=== PATIENT | female | born 1940 | race Caucasian/White ===

== ENCOUNTER 2016-04-29 16:41 | Inpatient (IN) | payer OTHER ==
[~2016-04-29] VITALS: Ht 167.6 cm; Wt 79.8 kg
--- NOTE | ~2016-04-29 | 2DMMODE ---
[facility] [place] [address] 2 D/M-MODE ECHOCARDIOGRAM Name: MANAN IGLESIAS Room #: 217-P [facility] IN M.R.#: [id number] Admission: 04/29/16 Attend Phys: Bladimir Mesa, Discharge: Date of : 36 Date of Service: 05/01/16 [facility] Report #: [id number] THIS REPORT FOR: //name// Transthoracic Echocardiography Ordering physician: Bladimir Mesa Referring physician: Bladimir Mesa Knitted Goods Shaper: Marilu Delgadillo Indications/History: Afib. Hx: HTN BP: 130 / HR: 109bpm Height: 66in Weight: 169.6lb 65 Study data: M-mode, complete 2D, complete spectral Doppler, and color Doppler. Location: Bedside. Routine. Image quality was adequate. 2D measurements Normal Normal LVID ED 39.7mm 36-57 IVS ED 10.8mm 6-11 LVID ES 26.4mm 23-40 LVPW ED 10mm 6-11 LA volume 40ml/m2 16-28 AoRoot diam 31.8mm 21-37 index ED LVOT diameter 19mm 18-23 Findings: Left ventricle: The cavity size was normal. Wall thickness was normal. Systolic function was normal. The estimated ejection fraction was in the range of 55% to 60%. Wall motion was normal. Right ventricle: The cavity size was normal. Systolic function was normal. Right atrium: The atrium was dilated. Possible shunting in region of fossa ovalis; cannot rule out PFO vs secundum ASD Left atrium: The atrium was moderately dilated. Volume index: 40ml/m2 (S). Aortic valve: Structurally normal valve. Doppler: There was no stenosis. No regurgitation. Peak velocity: 119.6cm/s (S). [facility] [address] [place] [address] 2 D/M-MODE ECHOCARDIOGRAM Name: MANAN IGLESIAS Room #: 217-P [facility] IN Giovanna.#: [id number] Admission: 04/29/16 Attend Phys: Bladimir Mesa, Discharge: Date of : 36 Date of Service: 05/01/16 1007 Report #: [id number] Mitral valve: Moderately to severely calcified annulus. Doppler: There was no evidence for stenosis. Mild regurgitation. Peak E-wave velocity: 121.2cm/s. Peak gradient: 5.9mm Hg (D). Tricuspid valve: Structurally normal valve. Doppler: There was no evidence for stenosis. Mild-moderate regurgitation. Regurgitant peak velocity: 234.6cm/s. Peak RV-RA gradient: 22mm Hg (S). Pulmonic valve: Structurally normal valve. Doppler: There was no evidence for stenosis. No regurgitation. Pericardium: There was no pericardial effusion. Aorta: Aortic root: The aortic root was normal in size. Pulmonary artery: Systolic pressure was estimated to be 27mm Hg. Diastolic function: The study was not technically sufficient to allow evaluation of LV diastolic dysfunction due to atrial fibrillation. Systemic veins: Inferior vena cava: The vessel was normal in size; the respirophasic diameter changes were in the normal range (= 50%). Conclusions 1. Left ventricle: Systolic function was normal. The estimated ejection fraction was in the range of 55% to 60%. Wall motion was normal. 2. Right atrium: The atrium was dilated. Possible shunting in region of fossa ovalis; cannot rule out PFO vs secundum ASD 3. Left atrium: The atrium was moderately dilated. 4. Aortic valve: Structurally normal valve. There was no stenosis. No regurgitation. 5. Mitral valve: Moderately to severely calcified annulus. There was no evidence for stenosis. Mild regurgitation. 6. Pulmonary arteries: Systolic pressure was estimated to be 27mm Hg. 7. Pericardium, extracardiac: There was no pericardial effusion. <ELECTRONICALLY SIGNED> By: Lucho Patel MD, [facility] 05/01/16 1056 1007 1056 Lucho Patel MD, [facility] /kelly
--- NOTE | ~2016-04-29 | H ---
[facility] [place] [address] HISTORY AND PHYSICAL Name: KELSIE,FRANCES Antwan Room #: 217-P [facility] IN M.R.#: [id number] Admission: 04/29/16 Attend Phys: Bladimir Mesa MD Discharge: 05/04/16 Date of : 38 Report #: [id number] THIS REPORT FOR: //name// CC: Bladimir Mesa DATE OF SERVICE: 04/30/2016 CHIEF COMPLAINT: Rapid heartbeat. HISTORY OF PRESENT ILLNESS: The patient is a 76-year-old female who presented to the ER with sensation of a rapid heartbeat. She denied any significant chest pain, but she did have some chest tightness and cough. She has had a recent upper respiratory tract infection with wheezing. She was unaware of any fevers or chills. She is not aware of any prior history of irregular heartbeats. She did have a nuclear stress test years ago however. PAST MEDICAL HISTORY: Significant for: 1. Hypertension. 2. DJD. ALLERGIES: No known drug allergies. SOCIAL HISTORY: Nonsmoker and nondrinker, no recreational drugs. REVIEW OF SYSTEMS: CONSTITUTIONAL: No fever or chills. HEENT: No headaches or visual changes. CHEST: She does have a cough with wheezing. CARDIOVASCULAR: She does have the palpations. GASTROINTESTINAL: No nausea, vomiting, diarrhea or constipation. GENITOURINARY: No complaints. EXTREMITIES: No swelling or new complaints. NEUROLOGIC: No new numbness or weakness. PHYSICAL EXAMINATION: VITAL SIGNS: Blood pressure in the ER 151/79, blood pressure now is 130s/80s, pulse was 115, now it is in the 80s and she is afebrile. O2 sat was 95% on room air. GENERAL: She is awake and alert, in no acute distress. HEENT: Her mucous membranes are moist. NECK: Supple, without adenopathy, thyromegaly or bruits. LUNGS: Chest is clear bilaterally, anteriorly some basilar wheezes. CARDIOVASCULAR: Irregular rhythm with a rate in the 80s to 90s. ABDOMEN: Soft, no masses. Bowel sounds are active. EXTREMITIES: Show no edema. Pulses are intact. [address] [address] HISTORY AND PHYSICAL Name: MANAN IGLESIAS Antwan Room #: 217-P [facility] IN [facility].#: [id number] Admission: 04/29/16 Attend Phys: Bladimir Mesa MD Discharge: 05/04/16 Date of : 38 Report #: [id number] DIAGNOSTIC DATA: EKG showed AFib with a rate of 134 in the ER. A second one was done a little bit later, it was 98. Chest x-ray showed cardiac prominence, an interstitial prominence, but no focal infiltrate. LABORATORY DATA: Sodium 137, potassium 4.7, chloride 100, bicarbonate 25, BUN 27, creatinine 1.2, glucose 117, calcium 9.2 and magnesium 2.0. AST 19 and ALT 27. Troponin less than 0.04. INR 1.0. WBCs 8.5, hemoglobin 13.5, hematocrit 40.7 and platelet count 217. Segs 56 and 24 lymphs. ASSESSMENT: Atrial fibrillation with rapid ventricular response. She was given a dose of intravenous diltiazem in the ER and her rate did slow down. She has been on a Cardizem drip. We have decreased her from 10 down to 5. She is doing well. She does report she has had these spells in the past, did not know what they were. PLAN: 1. We will go ahead and switch her to oral Cardizem, add Xarelto for anticoagulation, get an echocardiogram and consult Cardiology. 2. Degenerative joint disease, resume her home pain meds. 3. Follow up on her thyroid function studies in light of the new AFib. <ELECTRONICALLY SIGNED> By: Bladimir Mesa MD 05/05/16 1632 1446 1526 Bladimir Mesa MD /nt
--- NOTE | ~2016-04-29 | HC ---
[facility] [place] [address] CONSULTATION Name: MANAN IGLESIAS Room #: 217-P ADM IN M.R.#: [id number] Admission: 04/29/16 Attend Phys: Bladimir Mesa MD Discharge: Date of : 38 Report #: [id number] THIS REPORT FOR: //name// CC: Bladimir Mesa HISTORY OF PRESENT ILLNESS: This is a very pleasant 76-year-old white female who presented to the emergency room with sensation of heart racing. The patient states she had noticed increasing shortness of breath since . She also noticed that she had been fatigued and tired since that time. She was concerned today because along with the shortness of breath, she developed chest tightness with an associated cough, which is nonproductive. Upon further questioning, she stated that at around Day, she noted that she had an episode of tightness in her back and her chest. She thought that it was associated to age, activity, and movement and did not seek any medical attention. She continued having shortness of breath progressively since that time until symptoms this morning as described above concerned her. Prior to this , she had no chest pain, pressure, tightness, heaviness, fullness, dizziness, near syncope, or vertigo. She did notice an increasing fatigue since that time. Approximately 10 or so years ago, she did have a stress test and an echo, which was negative. PAST MEDICAL HISTORY: Significant for: 1. Hypertension. 2. Constipation, chronic. 3. Anxiety and depression. 4. Degenerative joint disease. 5. Overactive bladder. ALLERGIES: No known drug allergies. PAST SURGICAL HISTORY: Significant for: 1. Hysterectomy. 2. Bilateral knee replacements. FAMILY HISTORY: Significant for mother having had a pacemaker in 80s or 90s and sister with diabetes, otherwise no premature cardiovascular or neurovascular disease in first degree and second degree relatives. SOCIAL HISTORY: The patient does not smoke, does not consume alcohol, does not use recreational drugs. Does not follow particular exercise regimen or dietary restriction. MEDICATIONS: Omeprazole, simvastatin, Ritalin, Organ, benazepril, aspirin, hydrochlorothiazide, and Detrol. REVIEW OF SYSTEMS: Except for symptoms previously mentioned and those commensurate with comorbid states, the 10-point review of systems is negative. [address] [address] CONSULTATION Name: MANAN IGLESIAS Room #: 217-P [facility] IN M.R.#: [id number] Admission: 04/29/16 Attend Phys: Bladimir Mesa MD Discharge: Date of : 38 Report #: [id number] LABORATORY DATA: Demonstrates troponins that are less than 0.04. TSH is 1.7. H and H is 13.5 and 40.7, the platelet count is 217,000. RADIOLOGIC: Chest x-ray demonstrates some cardiac prominence, vascularity, but no significant other abnormalities. PHYSICAL EXAMINATION: GENERAL: Well-developed, well-nourished white female, resting comfortably, in no acute distress. VITAL SIGNS: Noted and reviewed in the chart. HEENT: Normocephalic, atraumatic. Pupils are equal, round, reactive to light and accommodation. Extraocular muscles are intact. Sclerae and conjunctivae are anicteric. NECK: JVD is normal. Carotid upstrokes are bilaterally symmetrical. No bruits are heard. No thyromegaly. No lymphadenopathy. LUNGS: Clear to auscultation. No wheezes, rhonchi or crackles. No CVA tenderness. CARDIAC: Demonstrates a regular rhythm. Normal first and second heart sounds. No ventricular or atrial gallops, no rubs noted. No murmurs. No lifts or heaves, PMI normal. ABDOMEN: Soft, nontender, nondistended. Normal bowel sounds. EXTREMITIES: Without cyanosis, clubbing or edema. Distal pulses are intact. DTR symmetrical. NEUROLOGIC: Cranial nerves 2-12 are grossly normal and symmetrical. PSYCHIATRIC: Alert, oriented with normal affect. SKIN: Warm and dry. IMPRESSION: 1. Paroxysmal atrial fibrillation. with diltiazem IV. We will then need to initiate an oral agent to control the rate. In view of the fact that she has had issues since , I am not going to proceed with antiarrhythmic therapy at this juncture. I am going to anticoagulate per standard protocol for 4 weeks and control rate. Then, make further recommendations. She does by chance convert more prominently than just a few minutes as she did now, then we will take that opportunity to initiate antiarrhythmic. We will anticoagulate with Eliquis since she is older than 70 years of age. We did discuss all agents available to us for this. She voices understanding and wishes to proceed. 2. Chest pain, may be secondary to the atrial fibrillation, but the concern that I have is that with risk factors, she may have ischemic origin. We will need to proceed with ischemic workup at some point in time, but if she does not [facility] [address] [place] [address] CONSULTATION Name: MANAN IGLESIAS Antwan Room #: 217-P ADM IN M.R.#: [id number] Admission: 04/29/16 Attend Phys: Bladimir Mesa MD Discharge: Date of : 38 Report #: [id number] have recurrent chest discomforts, then we can do as an outpatient. We will get an echocardiogram today to rule out any structural abnormalities. <ELECTRONICALLY SIGNED> By: Ryan Dawson MD 05/01/16 1133 17 0020 Ryan Dawson MD /nt
--- NOTE | ~2016-04-29 | EKG ---
[address] [address] ELECTROCARDIOGRAM REPORT Name: MANAN IGLESIAS Room #: 217-P ADM IN M.R.#: [id number] Admission: 04/29/16 Attend Phys: Bladimir Mesa MD Discharge: Date of : 38 Report #: [id number] THIS REPORT FOR: //name// [facility] ED Test Date: 2016-04-29 Test Time: 17:38:28 Pat Name: MANAN SANTIAGOGAST Department: Room: [facility] Gender: F Gyn Physician: MZOOK : 1940 Requested By: Adrian Barth Order Number: [id number] MD: Jose Miguel Louise Measurements Intervals [place] Rate: 98 P: [place]: QRS: 23 QRSD: 89 T: 11 QT: 378 QTc: 483 Interpretive Statements Atrial fibrillation Probable anteroseptal infarct, old No previous ECG available for comparison Electronically Signed On 04-30-2016 8:19:13 [employer]ING [employer]PER[employer] by Jose Miguel Louise [email or web address] <ELECTRONICALLY SIGNED> By: Jose Miguel Louise MD 04/30/16 0819 37 Jose Miguel Louise MD /OSMAR
--- NOTE | ~2016-04-29 | EKG ---
[address] [address] ELECTROCARDIOGRAM REPORT Name: MANAN IGLESIAS Room #: 217-P ADM IN M.R.#: [id number] Admission: 04/29/16 Attend Phys: Bladimir Mesa MD Discharge: Date of : 38 Report #: [id number] THIS REPORT FOR: //name// [facility] ED Test Date: 2016-04-29 Test Time: 16:53:46 Pat Name: MANAN SANTIAGOGAST Department: Room: [facility] Gender: F Kilnman: [facility] : 1940 Requested By: Adrian Barth Order Number: [id number] MD: Jose Miguel Louise Measurements Intervals [place] Rate: 134 P: [place]: QRS: 12 QRSD: 91 T: 18 QT: 313 QTc: 468 Interpretive Statements Atrial fibrillation Anteroseptal infarct, old ST depression, probably rate related No previous ECG available for comparison Electronically Signed On 04-30-2016 8:18:16 [employer]INTE[employer] by Jose Miguel Louise [email or web address] <ELECTRONICALLY SIGNED> By: Jose Miguel Louise MD 04/30/16 0818 52 52 Jose Miguel Louise MD /OSMAR
[2016-04-29 17:21] LABS: ABSOLUTE NEUTROPHILS 5.7 thou/uL (1.4-8.2); BASOPHILS 0.5 % (0.0-2.0); EOSINOPHILS 0.5 % (0.0-3.0); HEMATOCRIT 40.7 % (37.0-47.0); HEMOGLOBIN 13.5 gm/dL (12.0-15.0); LYMPHOCYTES 24.8 % (24.0-44.0); MCH 31.2 pg (26.0-34.0); MCHC 33.1 % (28.0-37.0); MCV 94.2 fL (80.0-100.0); MONOCYTES 7.3 % (1.0-8.0); PLATELET COUNT 217 thou/uL (150-400); POLYS 66.9 % (36.0-66.0); RBC 4.32 mil/uL (4.20-5.00); RDW 13.1 % (10.5-14.5); WBC 8.5 thou/uL (4.0-11.0)
[2016-04-29 17:25] LABS: MANUAL DIFF NO
[2016-04-29 17:31] LABS: ANION GAP 12 mmol/L (7-16); BUN 27 mg/dL (7-18); CALCIUM 9.2 mg/dL (8.5-10.1); CHLORIDE 100 mmol/L (98-107); CO2 25 mmol/L (21-32); CREATININE 1.2 mg/dL (0.6-1.3); GLUCOSE 117 mg/dL (70-99); POTASSIUM 4.7 mmol/L (3.5-5.1); SODIUM 137 mmol/L (136-145)
[2016-04-29 17:40] LABS: ALBUMIN 3.7 g/dL (3.4-5.0); ALKALINE PHOSPHATASE 87 U/L (46-116); SGOT 19 U/L (15-37); SGPT 27 U/L (30-65); TOTAL BILIRUBIN 0.4 mg/dL (<0.1-1.0); TOTAL PROTEIN 7.7 g/dL (6.4-8.2); TROPONIN-I < 0.04 ng/mL (<0.04-0.07)
[2016-04-29 17:48] LABS: APTT 26.4 Seconds (24.5-32.8); PROTIME 10.5 Seconds (9.3-11.4)
[2016-04-29 19:09] VITALS: BP 130/65
[2016-04-29] MEDS ORDERED: PRILOSEC 20 MG20 MG PO (20:29)
[2016-04-29] MEDS ORDERED: SIMVASTATIN10 MG PO (20:55)
[2016-04-29] MEDS ORDERED: RITALIN10 MG PO (20:56)
[2016-04-29] MEDS ORDERED: NORCO 10-325 T1 EACH PO (20:57)
[2016-04-29] MEDS ORDERED: BENAZEPRIL 10 M10 MG PO (20:58)
[2016-04-29] MEDS ORDERED: DETROL2 MG PO (21:01)
[2016-04-30] VITALS: BP 114/54
[2016-04-30 04:22] VITALS: BP 120/66
[2016-04-30] MEDS ORDERED: ASPIR 8181 MG PO (04:37)
[2016-04-30 08:08] VITALS: BP 148/71
[2016-04-30] MEDS ORDERED: HYDROCHLOROTHIA25 M2 PO (11:05)
[2016-04-30] MEDS ORDERED: DETROL2 M1 PO (11:07)
[2016-04-30 12:49] VITALS: BP 132/70
[2016-04-30 16:36] VITALS: BP 129/61
[2016-04-30 19:36] VITALS: BP 119/71
[2016-05-01 04:07] VITALS: BP 118/57
[2016-05-01 08:13] VITALS: BP 130/65
[2016-05-01 12:55] VITALS: BP 92/48
[2016-05-01 16:44] VITALS: BP 123/60
[2016-05-01 20:05] VITALS: BP 114/61
[2016-05-02 04:43] VITALS: BP 109/53
[2016-05-02 07:50] VITALS: BP 114/50
[2016-05-02 11:45] VITALS: BP 122/74
[2016-05-02 13:51] LABS: HEMATOCRIT 37.9 % (37.0-47.0); HEMOGLOBIN 12.1 gm/dL (12.0-15.0); MCH 30.2 pg (26.0-34.0); MCHC 31.8 % (28.0-37.0); MCV 95.1 fL (80.0-100.0); RBC 3.99 mil/uL (4.20-5.00); RDW 13.1 % (10.5-14.5); WBC 12.9 thou/uL (4.0-11.0)
[2016-05-02 13:53] LABS: CALCIUM 8.8 mg/dL (8.5-10.1); CREATININE 1.3 mg/dL (0.6-1.3); POTASSIUM 5.2 mmol/L (3.5-5.1)
[2016-05-02 16:15] VITALS: BP 118/62
[2016-05-02 21:15] VITALS: BP 144/74
[2016-05-03 05:19] VITALS: BP 134/54
[2016-05-03 08:20] VITALS: BP 130/66
[2016-05-03 13:20] VITALS: BP 108/63
[2016-05-03 16:30] VITALS: BP 121/61
[2016-05-03 19:48] VITALS: BP 152/69
[2016-05-04 03:41] VITALS: BP 120/68
[2016-05-04 09:20] VITALS: BP 132/87
[2016-05-04] MEDS ORDERED: ELIQUIS5 MG PO (10:50)
[2016-05-04] MEDS ORDERED: VERAPAMIL HCL 880 M1 PO (10:51)
[2016-05-04] MEDS ORDERED: CEFDINIR300 MG PO (10:52)
[2016-05-04] MEDS ORDERED: PREDNISONE 10 M10 MG PO (10:52)
[2016-05-04] MEDS ORDERED: VENTOLIN HFA 1818 GM INH (10:55)
[2016-05-04 11:25] VITALS: BP 132/87
[2016-05-04 11:52] VITALS: BP 130/80
[2016-05-04 12:45] VITALS: BP 132/70
[2016-06-03] MEDS ORDERED: VERAPAMIL HCL 880 M1 PO (12:35)
[2016-06-04] MEDS ORDERED: PACERONE 200 M200 M1 PO ×2 (14:44)
== END 2016-05-04 14:30 | disposition home or self-care (01) | DRG 310 ==
LOC: ER 16:41 → 2N 17:50 → EROBS 17:50 → 2N 19:19
PROVIDERS: Emergency Medicine; Family Medicine
DX: I48.1 Persistent atrial fibrillation (principal); M19.90 Unspecified osteoarthritis, unspecified site; J20.9 Acute bronchitis, unspecified; F32.9 Major depressive disorder, single episode, unspecified; I10 Essential (primary) hypertension; G89.29 Other chronic pain; M54.9 Dorsalgia, unspecified; R06.00 Dyspnea, unspecified; Z96.653 Presence of artificial knee joint, bilateral; K59.09 Other constipation; N32.81 Overactive bladder; Z90.710 Acquired absence of both cervix and uterus; Z82.49 Family history of ischemic heart disease and other diseases of the circulatory system; Z79.82 Long term (current) use of aspirin; Z79.899 Other long term (current) drug therapy; Z82.0 Family history of epilepsy and other diseases of the nervous system; Z83.3 Family history of diabetes mellitus; J22 Unspecified acute lower respiratory infection
CPT/HCPCS: 10194

== ENCOUNTER → 2017-05-27 | Outpatient (CLI) | payer OTHER ==
[~2017-05-27] VITALS: Ht 167.6 cm; Wt 78.9 kg
[~2017-05-27] MED LIST: ASPIR 8181 MG PO; BENAZEPRIL 10 M10 MG PO; CARAFATE 1 GM TA1 G1 PO; CEFDINIR300 MG PO; COLACE100 MG PO; DETROL2 M1 PO; DETROL2 MG PO; ELIQUIS5 MG PO; HYDROCHLOROTHIA25 M2 PO; NASONEX17 GM NASAL; NORCO 10-325 T1 EACH PO; PACERONE 200 M200 M1 PO; PREDNISONE 10 M10 MG PO; PRILOSEC 20 MG20 MG PO; RITALIN10 MG PO; SIMVASTATIN10 MG PO; VENTOLIN HFA 1818 GM INH; VERAPAMIL HCL 880 M1 PO
--- NOTE | ~2017-05-27 | P ---
[facility] [place] [address] PROCEDURE REPORT Name: MANAN IGLESIAS Room #: REG [facility]#: [id number] Admission: 05/27/17 Attend Phys: Jose Miguel Louise MD Discharge: Date of : 38 Report #: [id number] THIS REPORT FOR: //name// CC: Ryan Mesa PREOPERATIVE DIAGNOSIS: Atrial flutter. POSTOPERATIVE DIAGNOSIS: Typical cavotricuspid isthmus dependent flutter. PROCEDURES PERFORMED: 1. SVT ablation, CPT code 20231. 2. EP left atrial pacing and recording, CPT code 77653. 3. 3D mapping, CPT code 88759. HISTORY: The patient is a 77-year-old with history of atrial flutter here for ablation. ANESTHESIA: The patient underwent MAC anesthesia with no anesthesia related- complications. DESCRIPTION PROCEDURE: The patient underwent informed consent. We discussed the details of the procedure including the risks, which include but are not limited to bleeding, vascular damage, cardiac perforation as well as stroke or PA. She understood these risks and was willing to proceed. She is brought to the EP laboratory in a fasting and sedated state and prepped and draped in a sterile fashion. Next, I obtained access to the right femoral vein times 3, placing an 8-Northern Irish, 7-Northern Irish and 7-Northern Irish short sheath utilizing the modified Seldinger technique. Using fluoroscopy, a decapolar catheter was placed into the coronary sinus and a halo catheter was placed into the right atrium. Pacing was performed from both the right and left atriums. At baseline, the patient was in atrial flutter with a ventricular cycle length of 570 milliseconds, QRS duration 80 milliseconds, QT interval 370 milliseconds and atrial cycle length of 290 milliseconds. There was some wobble of this atrial cycle length anywhere from 270-290 milliseconds. Next, I performed entrainment and the post-pacing interval minus tachycardia cycle length was anywhere from 15-40 milliseconds. Again, there was some wobble in the tachycardia cycle length, but this was suggestive that this was atrial flutter utilizing the cavotricuspid isthmus. 3D mapping and ablation: Next, I placed a ramp sheath and 8 mm Biosense Olguin ablation catheter into the right atrium. Next, I created a 3D geometry of the right atrium. I then performed ablation at 70 sparks and 60 degrees at 6 o'clock along the cavotricuspid isthmus. A continuous drag line was performed and there was acute termination of the atrial flutter. Post-ablation, the [facility] [address] [place] [address] PROCEDURE REPORT Name: MANAN IGLESIAS Room #: REG [facility]..#: [id number] Admission: 05/27/17 Attend Phys: Jose Miguel Louise MD Discharge: Date of : 38 Report #: [id number] conduction time was 190 milliseconds pacing either medial or lateral to the line. Differential pacing from the Halo was also consistent with bidirectional block. Post-ablation, an EP study was performed and AV block was noted at 480 milliseconds. AV brisa ERP was noted at 380 milliseconds at [address] cycle length. The sinus node recovery time after pacing at 500 milliseconds for 1 minute was 1700 milliseconds. There was no induction of any atrial fibrillation, SVT or any other arrhythmias. Post-ablation, I checked and there was persistence of bidirectional block. Post-ablation, the patient was in sinus rhythm with a sinus cycle length of 980 milliseconds, [place] interval 180 milliseconds, QRS duration 80 milliseconds and QT interval 446 milliseconds. As such, all catheters and sheaths were pulled. Hemostasis was obtained and the patient awoke neurologically and hemodynamically intact with no significant bleeding. CONCLUSIONS: 1. Successful ablation of atrial flutter with evidence of bidirectional block. 2. Normal SA brisa function. 3. Normal AV brisa function. 4. Normal His-Purkinje function. 5. No other inducible arrhythmias noted. <ELECTRONICALLY SIGNED> By: Jose Miguel Louise MD 05/28/17 1548 1601 0135 Jose Miguel Louise MD /nt
[2017-05-27 07:10] VITALS: BP 152/89
[2017-05-27 07:21] LABS: ABSOLUTE NEUTROPHILS 5.4 thou/uL (1.4-8.2); BASOPHILS 0.6 % (0.0-2.0); EOSINOPHILS 2.2 % (0.0-3.0); HEMATOCRIT 40.8 % (37.0-47.0); HEMOGLOBIN 13.5 gm/dL (12.0-15.0); LYMPHOCYTES 23.3 % (24.0-44.0); MCH 32.4 pg (26.0-34.0); MCV 98.2 fL (80.0-100.0); MONOCYTES 8.1 % (1.0-8.0); PLATELET COUNT 176 thou/uL (150-400); POLYS 65.8 % (36.0-66.0); RBC 4.16 mil/uL (4.20-5.00); RDW 13.7 % (10.5-14.5); WBC 8.2 thou/uL (4.0-11.0)
[2017-05-27 07:30] LABS: CALCIUM 9.4 mg/dL (8.5-10.1); CREATININE 1.3 mg/dL (0.6-1.0); POTASSIUM 4.4 mmol/L (3.5-5.1)
[2017-05-27 07:36] LABS: TOTAL BILIRUBIN 0.3 mg/dL (<0.1-1.0); TOTAL PROTEIN 7.1 g/dL (6.4-8.2)
[2017-05-27 07:42] LABS: APTT 26.6 Seconds (24.5-32.8); PROTIME 10.7 Seconds (9.3-11.4)
== END | disposition home or self-care (01) ==
LOC: CATH 06:35
PROVIDERS: Internal Medicine Cardiovascular Disease
DX: I48.3 Typical atrial flutter (principal); I10 Essential (primary) hypertension; E78.5 Hyperlipidemia, unspecified; M19.90 Unspecified osteoarthritis, unspecified site; K21.9 Gastro-esophageal reflux disease without esophagitis; Z98.890 Other specified postprocedural states; Z90.710 Acquired absence of both cervix and uterus; Z96.649 Presence of unspecified artificial hip joint; Z79.899 Other long term (current) drug therapy; Z79.82 Long term (current) use of aspirin; Z79.891 Long term (current) use of opiate analgesic; Z79.01 Long term (current) use of anticoagulants
CPT/HCPCS: 62110; 62900; 70005

== ENCOUNTER → 2017-06-24 | Outpatient (CLI) | payer OTHER | LOC: RAD 13:50 | DX: R06.02 Shortness of breath (principal); J22 Unspecified acute lower respiratory infection; I48.0 Paroxysmal atrial fibrillation; E78.5 Hyperlipidemia, unspecified; I10 Essential (primary) hypertension; Z96.653 Presence of artificial knee joint, bilateral; Z79.899 Other long term (current) drug therapy ==

== ENCOUNTER → 2020-06-27 | Outpatient (CLI) | payer OTHER, BC ==
[2020-06-27 13:04] VITALS: BP 152/47
--- NOTE | 2020-06-29 13:18 | LINQ ---
[facility] [place] [address] LINQ PROCEDURE REPORT Name: MANAN IGLESIAS Room #: REG [facility]#: [id number] Admission: 06/27/20 Attend Phys: Ryan Dawson Discharge: Date of : 38 Report #: [id number] THIS REPORT FOR: cc: Bladimir Mesa MD, Neal A. MD Lammoglia, Francisco J. MD ~ APPROVED REPORT Study performed: 06/27/2020 13:56:29 Patient Status: Out-Patient Room #: Event Personnel: Ryan Dawson MD Exam: Insertion of an implantable loop recorder Indications: 80-year-old female patient with a history of atrial fibrillation increasing symptoms of palpitations fatigue and shortness of breath The patient is a 80 year-old female with a history of atrial fibrillation increasing symptoms of palpitations fatigue and shortness of breath. Implanted Devices: Biotronik IIIm ProMRI; Serial # [id number], Reference # [id number], Use By 2021-08-24 Procedure The patient underwent informed consent. We discussed the details of the procedure including the risks, which include, but not limited to bleeding, infection, vascular damage, cardiac perforation, and pneumothorax. After informed consent was obtained the patient was brought to the cardiac catheterization laboratory prepped and hold. Left chest was prepped and draped in usual sterile manner. Utilizing 1% lidocaine a small wheal was raised and subsequent extension subcutaneously along the proposed insertion tract with a small spinal needle. Subsequent to this an 11 blade was utilized for a skin incision. Utilizing both blunt and sharp dissection a small tract was created. The device was then deployed with his deployment tool in place. Subcutaneous tissue was closed with 2 simple interrupted absorbable suture and the skin was closed with a running 3-0 Vicryl subcuticular stitch. Dermabond on the skin Steri-Strips 4 x 4 OpSite were utilized. Patient tolerated procedure well. Readings were satisfactory Electrode Parameters P Wave: 1.[address] [address] [employer] PROCEDURE REPORT Name: MANAN IGLESIAS Room #: REG [facility]#: [id number] Admission: 06/27/20 Attend Phys: Ryan Leal Discharge: Date of : 38 Report #: [id number] Complications The patient tolerated the procedure well and there were no complications associated with the procedure. Findings Specimens Removed: N/A Conclusion 1. Successful insertion of a Biotronik implantable loop recorder Recommendations 1. Routine post insertion protocol <ELECTRONICALLY SIGNED> By: Ryan Dawson MD 06/29/20 1317 1317 1317 Ryan Dawson MD /INF
== END | disposition home or self-care (01) ==
LOC: CATH 08:11
PROVIDERS: ATTEND Internal Medicine
DX: I48.0 Paroxysmal atrial fibrillation (principal); R06.02 Shortness of breath; R00.2 Palpitations; Z98.890 Other specified postprocedural states; Z79.01 Long term (current) use of anticoagulants; Z79.899 Other long term (current) drug therapy

== ENCOUNTER → 2020-10-09 | Outpatient (CLI) | payer OTHER, BC | LOC: SJCVCIMAG 10:49 | PROVIDERS: ATTEND Internal Medicine | DX: I08.1 Rheumatic disorders of both mitral and tricuspid valves (principal); I11.9 Hypertensive heart disease without heart failure; R06.00 Dyspnea, unspecified; R53.83 Other fatigue; I48.0 Paroxysmal atrial fibrillation; Z78.0 Asymptomatic menopausal state; Z79.82 Long term (current) use of aspirin; Z79.899 Other long term (current) drug therapy ==